=== PATIENT | male | born 1985 | race Caucasian/White ===

== ENCOUNTER 2018-11-10 21:17 | Inpatient (IN) ==
[2018-11-10] MEDS ORDERED: DUONEB (A & A) INH ONE (22:55)
[2018-11-10] MEDS ORDERED: TORADOL IM ONE (22:55)
[2018-11-10 23:10] LABS: BASO# 0.02 X1000 (0.0-0.2); BASO% 0.1 % (0.0-0.8); EOS# 0.09 X1000 (0.0-0.7); EOS% 0.6 % (0.0-10.0); HEMATOCRIT 43.6 % (42.0-52.0); HEMOGLOBIN 14.7 g/dL (14.0-18.0); IMM GRAN# 0.02 X1000 (0.0-0.04); IMM GRAN% 0.1 % (0.0-0.5); LYMPH# 1.44 X1000 (1.2-3.4); LYMPH% 10.2 % (20.5-51.1); MCH 28.1 PG (27-31); MCHC 33.7 g/dL (33-37); MCV 83.2 FL (81-99); MONO# 0.83 X1000 (0.11-0.59); MONO% 5.9 % (1.7-9.3); MPV 8.6 FL (7.4-10.4); NEUT# 11.65 X1000 (1.4-6.5); NEUT% 83.1 % (42.2-75.2); PLT 349 X1000 (130-400); RBC 5.24 XMIL (4.7-6.1); RDW 13.1 % (11.5-14.5); WBC 14.05 X1000 (4.8-10.8)
[2018-11-10 23:34] LABS: AGAP 12; ALB/GLOB RATIO 1.1; ALBUMIN 4.4 g/dL (3.5-5.0); ALKALINE PHOSPHATASE 83 U/L (32-122); AMYLASE 32 U/L (20-200); BUN 12 mg/dL (8-22); CALCIUM 9.1 mg/dL (8.8-10.2); CHLORIDE 100 mmol/L (98-107); CK TOTAL 105 U/L (24-204); COSMO 276; CREATININE 1.1 mg/dL (0.7-1.2); ESTIMATED GFR > 60; GLUCOSE 106 mg/dL (70-104); GOT 11 U/L (10-34); GPT 19 U/L (10-44); LIPASE 31 U/L (13-60); POTASSIUM 3.6 mmol/L (3.5-5.1); SODIUM 138 mmol/L (136-145); TCO2 26 mmol/L (25-35); TOTAL BILIRUBIN 0.52 mg/dL (0.20-1.00); TOTAL PROTEIN 8.5 g/dL (6.3-8.3)
[2018-11-11 01:56] LABS: URINE SOURCE CLEAN CATCH
[2018-11-11 01:59] LABS: BILIRUBIN URINE NEGATIVE (NEGATIVE); BLOOD URINE LARGE (NEGATIVE); COLOR ORANGE; GLUCOSE URINE NEGATIVE (NEGATIVE); KETONE URINE NEGATIVE (NEGATIVE); LEUKOCYTES URINE TRACE (NEGATIVE); NITRITE URINE NEGATIVE (NEGATIVE); PROTEIN URINE 50 mg/dL (NEGATIVE); TURBIDITY URINE CLEAR (CLEAR); UROBILINOGEN URINE NORMAL (NORMAL)
[2018-11-11 02:16] LABS: UR AMPHETAMINES QUAL NONE DETECTED (NONE DETECT); UR BARBITUATES QUAL NONE DETECTED (NONE DETECT); UR BENZODIAZEPIN QUAL NONE DETECTED (NONE DETECT); UR OPIATES QUAL NONE DETECTED (NONE DETECT)
[2018-11-11 02:17] LABS: UR CANNABINOIDS QUAL NONE DETECTED (NONE DETECT); UR COCAINE QUAL NONE DETECTED (NONE DETECT); UR METHADONE QUAL NONE DETECTED (NONE DETECT); UR OXYCODONE QUAL NONE DETECTED (NONE DETECT); UR PCP QUAL NONE DETECTED (NONE DETECT)
[2018-11-11] MEDS: ROCEPHIN 1 GM in NS 50 ML IV SCH (02:20)
[2018-11-11 02:32] LABS: UR EPITHELIAL CELLS <10 /HPF (<10); URINE BACTERIA NEGATIVE /HPF; URINE RBC TNTC /HPF (<10); URINE WBC TNTC /HPF (<10)
[2018-11-11 02:49] LABS: SP GRAVITY URINE 1.015
--- NOTE | 2018-11-11 02:59 | PROVIDER DOCUMENTATION ---
This chart was entered by Renee Webster Scribe, acting as scribe for Esperanza Hill MD. HPI-Chest Pain - General Chief Complaint: General Adult Stated Complaint: PAIN IN CHEST, SIDE AND BACK WITH BREATHING Time Seen by Provider: 11/10/18 21:40 Allergies/Adverse Reactions: Patient Allergies Allergy/AdvReac Type Severity Reaction Status Date / Time aspirin AdvReac RASH Verified 11/11/18 00:22 Home Medications: Home Medication List Medication Instructions Recorded Confirmed Last Taken Type Cyclobenzaprine [Flexeril] 10 mg PO TID PRN PRN #14 tab 11/05/18 11/11/18 Unknown Rx Tramadol [Ultram] 50 mg PO Q6H PRN PRN #10 tab 11/05/18 11/11/18 Unknown Rx - History of Present Illness-CP Nature of Presenting Problem: 33 yowm c/o cp, substernal/epigastric and radiating to bilateral sides and back. pt went to [facility] two wks ago for shoulder blade inj, administered shot. pt sts when breathing and cough cp is worse. 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 denies nvd, fever, chills. pt was seen in [facility] er on 11-05 to follow up from work related injury to shoulder. Location: reports: substernal, epigastric Chest Pain Radiation: reports: no radiation Severity in ED: mild Onset/Duration: 5 days ago Timing: still present Context/Activities at Onset: reports: none Modifying Factors: improves with: breathing (worse), coughing (worse) Associated Symptoms: reports: back pain Nitro Today/Relief: no nitro taken today Aspirin Treatment Today: no aspirin today Review of Systems - Adult - REVIEW OF SYSTEMS - ADULT Constitutional: reports: no symptoms reported. denies: chills, fever, fatique, night sweats Eyes: reports: no symptoms reported Ears, Nose, Mouth & Throat: reports: no symptoms reported Cardiovascular: reports: see HPI, chest pain (substernal/epigastric). denies: orthopnea, palpitations, syncope Respiratory: reports: cough, pleurisy. denies: hemoptysis, shortness of breath, wheezing Gastrointestinal: reports: no symptoms reported Genitourinary: reports: see HPI, flank pain (bilat) Musculoskeletal: reports: see HPI, back pain. denies: muscle aches, muscle weakness, neck pain Integumentary: reports: no symptoms reported Neurological: reports: no symptoms reported Psychiatric: reports: no symptoms reported Endocrine: reports: no symptoms reported Hematologic/Lymphatic: reports: no symptoms reported Allergic/Immunologic: reports: no symptoms reported All Other Systems: Reviewed and Negative Past History - Adult - PAST MEDICAL HISTORY-ADULT Review of Records: reports: Old Records Reviewed, Nursing Assessment Review, Medications Reviewed, Social history reviewed & non-contributory. Major Childhood Illnesses: reports: denies history Cardiovascular: reports: denies history Respiratory: reports: asthma Gastrointestinal: reports: denies history Obstetrical/Gynecological: reports: denies history Genitourinary: reports: denies history Musculoskeletal: reports: denies history Neurological: reports: denies history Endocrine/Immune: reports: denies history Other Conditions: reports: denies history - PRIOR SURGERIES/PROCEDURES Surgical/Procedure History: reports: none - IMMUNIZATION STATUS Childhood Immunizations: See Nurse Assessment Flu Vaccine: See Nurse Assessment - FAMILY HISTORY Family History: reviewed, not pertinent - SOCIAL HISTORY Smoking: non-smoker Substance Use: alcohol Physical Exam-General - PHYSICAL EXAM-ADULT Initial Vital Signs Reviewed: Yes - CONSTITUTIONAL General Appearance: appears well, alert, moderate distress, obese. negative: lethargic, slow to respond, obtunded - EYES Eyes: PERRL/EOMI, pink conjunctivae - HEAD, EARS, NOSE, MOUTH & THROAT HENMT: normocephalic/atraumatic, moist mucous membranes, normal ENT inspection - NECK Neck: non-tender, full range of motion, supple, normal inspection - RESPIRATORY Respiratory: chest non-tender, lungs clear, no pleuratic chest pain, no respiratory distress, no accessory muscle use, decreased breath sounds (rt si ded), wheezing (scant). negative: normal breath sounds, respiratory distress, accessory muscle use, crackles - CARDIOVASCULAR Cardiovascular: normal peripheral pulses, regular rate, rhythm, no edema, no murmur. negative: JVD, bradycardia, tachycardia - CHEST (BREASTS) Chest/Breast: no masses/lumps, tenderness (cp reproducable to palp). negative: no tenderness, nipple discharge, mass/lump noted - GASTROINTESTINAL (ABDOMEN) Abdominal Exam: normal bowel sounds, soft, no organomegaly, no pulsatile mass, tenderness (mild epigsatric to palp). negative: non tender, abnormal bowel sounds, distended, guarding - LYMPHATIC Lymphatic: no adenopathy - MUSCULOSKELETAL Back Exam: normal inspection, no CVA tenderness, no vertebral tenderness. negative: CVA tenderness, decreased range of motion, vertebral tenderness Extremity: normal range of motion, non-tender, normal gait, normal inspection Peripheral Pulses: radial (R): 2+, radial (L): 2+ - SKIN Integumentary: normal color, normal turgor, warm/dry - NEUROLOGIC Neurologic: grossly normal, no motor/sensory deficits - PSYCHIATRIC Psych/Mental Status: normal mood/affect, normal thought content, normal thought process, oriented x 3 - HEART Score HEART Score: History: Slightly Suspicious HEART Score: ECG: Normal HEART Score: Age: < or = 45 Years HEART Score: Risk Factors for Atherosclerotic Disease: 1 or 2 Risk Factors HEART Score: Troponin: < or = Normal Limit Total HEART Score:: 1 Progress - PLAN OF CARE/RESULTS Progress/Plan/Lab Results: Vital Signs - 8 hr 11/10/18 22:06 11/10/18 23:15 Temperature 98.3 F Pulse Rate 106 H 85 Respiratory Rate 20 15 Blood Pressure 133/87 O2 Sat by Pulse Oximetry 98 Laboratory Results - last 24 hr 11/10/18 11/10/18 11/10/18 22:50 22:50 22:50 WBC 14.05 H RBC 5.24 Hgb 14.7 Hct 43.6 MCV 83.2 MCH 28.1 MCHC 33.7 RDW Std Deviation 13.1 Plt Count 349 MPV 8.6 Immature Gran % (Auto) 0.1 Neut % (Auto) 83.1 H Lymph % (Auto) 10.2 L Warren % (Auto) 5.9 Eos % (Auto) 0.6 Baso % (Auto) 0.1 Immature Gran # (Auto) 0.02 Neut # (Auto) 11.65 H Lymph # (Auto) 1.44 Warren # (Auto) 0.83 H Eos # (Auto) 0.09 Baso # (Auto) 0.02 Sodium 138 Potassium 3.6 Chloride 100 Carbon Dioxide 26 Anion Gap 12 BUN 12 Creatinine 1.1 Estimated GFR/1.73 m2 > 60 BUN/Creatinine Ratio 11 Glucose 106 H Calculated Osmolality 276 Calcium 9.1 Total Bilirubin 0.52 AST 11 ALT 19 Alkaline Phosphatase 83 Creatine Kinase 105 Troponin T < 0.010 Total Protein 8.5 H Albumin 4.4 Globulin 4.1 Albumin/Globulin Ratio 1.1 Amylase 32 Lipase 31 Urine Source Urine Color Urine Turbidity Urine pH Ur Specific [place] Urine Protein Ur Glucose (Stick) Ur Ketones (Stick) Urine Blood Urine Nitrite Urine Bilirubin Urobilinogen Dipstick Urine Leukocytes Urine WBC (Auto) Urine RBC (Auto) U Epithel Cells (Auto) Urine Bacteria (Auto) Urine Crystals Small Round Cells Urine Casts Urine Yeast-like Cells Urine Opiates Screen Ur Oxycodone Screen Ur Methadone, Qual Ur Barbiturates Screen Ur Phencyclidine Scrn Ur Amphetamines Screen U Benzodiazepines Scrn Urine Cocaine Screen U Cannabinoids Screen 11/11/18 11/11/18 01:52 01:52 WBC RBC Hgb Hct MCV MCH MCHC RDW Std Deviation Plt Count MPV Immature Gran % (Auto) Neut % (Auto) Lymph % (Auto) Warren % (Auto) Eos % (Auto) Baso % (Auto) Immature Gran # (Auto) Neut # (Auto) Lymph # (Auto) Warren # (Auto) Eos # (Auto) Baso # (Auto) Sodium Potassium Chloride Carbon Dioxide Anion Gap BUN Creatinine Estimated GFR/1.73 m2 BUN/Creatinine Ratio Glucose Calculated Osmolality Calcium Total Bilirubin AST ALT Alkaline Phosphatase Creatine Kinase Troponin T Total Protein Albumin Globulin Albumin/Globulin Ratio Amylase Lipase Urine Source CLEAN CATCH Urine Color ORANGE Urine Turbidity CLEAR Urine pH 6.0 Ur Specific [place] 1.015 Urine Protein 50 A Ur Glucose (Stick) NEGATIVE Ur Ketones (Stick) NEGATIVE Urine Blood LARGE A Urine Nitrite NEGATIVE Urine Bilirubin NEGATIVE Urobilinogen Dipstick NORMAL Urine Leukocytes TRACE A Urine WBC (Auto) TNTC A Urine RBC (Auto) TNTC A U Epithel Cells (Auto) <10 Urine Bacteria (Auto) NEGATIVE Urine Crystals CA OXALATE PRESENT Small Round Cells NONE SEEN Urine Casts NONE SEEN Urine Yeast-like Cells NONE SEEN Urine Opiates Screen NONE DETECTED Ur Oxycodone Screen NONE DETECTED Ur Methadone, Qual NONE DETECTED Ur Barbiturates Screen NONE DETECTED Ur Phencyclidine Scrn NONE DETECTED Ur Amphetamines Screen NONE DETECTED U Benzodiazepines Scrn NONE DETECTED Urine Cocaine Screen NONE DETECTED U Cannabinoids Screen NONE DETECTED Orders Category Date Time Status CHEST-2 VIEWS [RAD] Stat Exams 11/10/18 22:[address] ANGIOGRM PULMONARY ARTERIES [CT] Stat Exams 11/11/18 00:06 Taken AMYLASE [CHEM] Stat Lab 11/10/18 22:50 Completed CBC WITH ELECTRONIC DIFF [HEME] Stat Lab 11/10/18 22:50 Completed CK TOTAL [CHEM] Stat Lab 11/10/18 22:50 Completed COMPREHENSIVE METABOLIC PANEL [CHEM] Stat Lab 11/10/18 22:50 Completed LIPASE [CHEM] Stat Lab 11/10/18 22:50 Completed TROPONIN T Stat Lab 11/10/18 22:50 Completed URINALYSIS W/POSS RFLX CULT [URINALYSIS] Stat Lab 11/11/18 01:52 Completed URINE CULTURE [RM] Routine Lab 11/11/18 02:49 Received URINE DRUG SCREEN Stat Lab 11/11/18 01:52 Completed URINE MANUAL MICROSCOPIC [URINALYSIS] Stat Lab 11/11/18 01:52 Completed Albuterol 2.5MG/Ipratrop 0.5MG [Duoneb (A & A)] Med 11/10/18 22:55 Discontinued 3 ml INH NOW ONE CefTRIAXONE [Rocephin] 1 gm Med 11/11/18 02:15 Active 0.9% Sodium Chloride Inj [Ns] 50 ml IV Q24H Cyclobenzaprine [Flexeril] Med 11/11/18 06:02 Ordered 10 mg PO TID PRN PRN Ketorolac [Toradol] Med 11/10/18 22:55 Discontinued 60 mg IM NOW ONE Tramadol [Ultram] Med 11/11/18 06:02 Ordered 50 mg PO Q6H PRN PRN Aerosol Treatments Routine Oth 11/10/18 22:55 Completed Aerosol Treatments Stat Oth 11/10/18 22:55 Completed Patient has been seen in [facility] on and CXR showing no specific granulamatous changes and possible clavicular fx. Went to PCP and PCP told him no clavicular fracture and gave him injection in his shoulder and sent him back to [facility] for chest pain rule out. He was told at [facility] it was not his heart and discharged with pain medications. Patient also presented with abd pain here in may and no CT was done at that time. CT chest ordered today and showing concerns for metatstatic disease and less likely inflammatory disease in lungs and T5 vetebrae. Concern for malignancy. Spoke to patient about findings and the need to be admitted. He agreed. He also has a UTI and is being treated for that. Offered further pain medications after toradol but he states he is fine and is just more interested in finding out what is going on. Spoke to Dr Llanos, front desk manager for hospitalist who accepted patient for admission. Further orders to be placed by their team. Result Diagrams: 11/10/18 22:50 11/10/18 22:50 - XRAY 1 XRAY Study: Chest Impression: Abnormal XRAY Interpretation: patchy appearance - CT/MRI 1 CT Study: Thorax (Poor evaluation for acute PE due to poor bolus, multiple varibly sized lung nodules. Considerations include metastatic disease and less likely TB or atypical infections, Destructive lesion in the inferior T5, considerations include metastatic disease and less likely inflammatory. Recommend MRI spine with and without contrast.) - CONSULTS/PCP/HOSPITALIST Notification #1 *Consult/PCP/Hospitalist*: Dr Llanos Time Discussed: 02:54 Consult Disposition: Admit Departure - Departure Date of Disposition Decision: 11/11/18 Time of Disposition Decision: 02:54 DIAGNOSIS: Chest pain, Lesion of vertebra of thoracic spine present on computed tomography, Lung nodules, UTI (urinary tract infection) Disposition: ADMITTED INPATIENT 09 Certified Medical Emergency: Emergent Condition: Stable Referrals and Follow-Ups: None,PCP [Primary Care Provider] - - Critical Care Note This patient required my direct & personal management of CC.: No Attestation - Physician/ MISAEL Attestation Patient care was provided by Advanced Practice Provider:: No The physician spent face to face time with patient:: Yes Advanced Practice Provider documentation review:: Supervising physician onsite and consulted in the evaluation and care of this patient. The physician did have a face to face encounter with the patient. This chart was documented by the indicated scribe, (Renee Webster Scribe) and accurately reflects the services I performed and decisions made by me, Esperanza Hill MD, as attested by the provider's signature.
[2018-11-11 03:02] LABS: URINE CASTS NONE SEEN; URINE CRYSTALS CA OXALATE PRESENT; URINE SMALL ROUND CELLS NONE SEEN; URINE YEAST NONE SEEN
[2018-11-11] MEDS ORDERED: TUBERSOL ID ONE (06:05)
[2018-11-11] MEDS ORDERED: LEVAQUIN 750 MG/D5W 750 MG/150 ML IVPB IV SCH (06:15)
[2018-11-11] MEDS: DUONEB (A & A) INH SCH ×4 (07:22→22:50)
[2018-11-11] MEDS ORDERED: ZOFRAN IV PRN (07:49)
[2018-11-11] MEDS ORDERED: TYLENOL PO PRN (07:49)
--- NOTE | 2018-11-11 08:36 | Diag Imaging Result Doc PS360 ---
EXAM: CHEST-2 VIEWS INDICATION: decreased breath on right, SOB TECHNIQUE: 2 views COMPARISON: 11/05/2018 FINDINGS: Inspiration is suboptimal. There is mild linear opacity at the lung bases suggesting mild atelectasis. Vague nodular densities in the upper lung zones bilaterally are approximately stable. There is no discrete pleural fluid collection or pneumothorax. The cardiomediastinal silhouette and central vasculature are grossly unremarkable. IMPRESSION: Suggestion of mild bibasilar atelectasis. Nonspecific nodular densities are grossly unchanged. Electronically signed by Nixon Webster 11/11/2018 8:34 AM
--- NOTE | 2018-11-11 09:12 | HISTORY AND PHYSICAL ---
CHIEF COMPLAINT: Chest pain, shoulder pain. HISTORY OF PRESENT ILLNESS: This is a 33-year-old male who had a work injury this last week, hurt his left shoulder. He was given a shot in it. The patient states when breathing and coughing, chest pain is worse. He was having chest pain that radiated to bilateral sides and back. Denies any type of fever or chills. Also was having some substernal/epigastric pain. Denies any nausea or vomiting. Breathing makes it worse as well as coughing. Rest makes it better. He feels it is more with respiration as opposed to actual chest pain. He has been trying to breathe shallow. A CT angiogram was done in the emergency room which showed multiple lung nodules. Considerations include metastatic disease, TB and atypical infection; however, those are less likely. There is apparently a destructive lesion in the inferior T5. Recommends an MRI when possible. He will be admitted for further evaluation and treatment. PAST MEDICAL HISTORY: Asthma. PAST SURGICAL HISTORY: Denies. FAMILY HISTORY: Diabetes and nonspecific cancer. SOCIAL HISTORY: Works at [employer]. He has not worked in 3 weeks. He dips chewing tobacco. Uses alcohol occasionally. No illicit drugs. ALLERGIES: Aspirin. HOME MEDICATIONS: Ultram and Flexeril which were given for the shoulder pain. REVIEW OF SYSTEMS: A 14-point review of systems was conducted with the patient, and pertinent positives are listed in the above HPI. All other systems are reviewed and found to be negative. PHYSICAL EXAMINATION: VITAL SIGNS: Temperature is 98.3, pulse 76, respirations 18, blood pressure 149/77, oxygen saturation 97% on room air. GENERAL: This is a pleasant 33-year-old male. He is obese, lying on the ER stretcher, answers all questions appropriately. Alert and oriented x3. HEENT: Head is atraumatic and normocephalic. Pupils are equal, round and reactive to light. Extraocular eye movements intact. Sclerae nonicteric. Conjunctivae are pink. Oral mucosa is pink. NECK: Supple. No JVD. No thyromegaly. Trachea is midline. No cervical lymphadenopathy. CARDIAC: S1 and S2 appreciated. No murmurs, gallops or rubs. LUNGS: Decreased bilaterally. No rhonchi, wheeze or rales. Symmetrical rise and fall with respirations. ABDOMEN: Soft, nondistended and nontender. It is protuberant. Bowel sounds present in all 4 quadrants, normoactive. No pulsatile masses. No organomegaly. EXTREMITIES: No cyanosis, clubbing or edema. There are 2+ pedal pulses bilaterally. GENITOURINARY: No bladder distention. The patient voids. Otherwise normal. NEUROLOGICAL: Alert and oriented x3. Cranial nerves II through XII grossly intact. DIAGNOSTIC DATA: Pulmonary arteriogram showed multiple lung nodules and also showed a destructive lesion in the inferior T5. Laboratory data showed WBC of 14.05, otherwise CBC within normal limits. Chemistry within normal limits other than glucose of 106. Urine with too numerous to count WBCs, leukocyte esterase positive. Large amounts of hematuria with too numerous to count RBCs noted. ASSESSMENT AND PLAN: 1. Pulmonary nodules of unknown etiology. We will consult Dr. Oakes. We will place the patient on treatment for an atypical pneumonia since he works at [employer] around [employer]. We will place him on doxycycline and Rocephin. We will order blood cultures. As noted, we will consult Dr. Oakes to evaluate pulmonary nodules. 2. Destructive lesion at the area of T5. Recommend MRI on Monday. There is no MRI over the weekend. 3. Leukocytosis. This could be reactive; however, it could be related to atypical infection. 4. Asthma. We will place on DuoNebs q.6 hours. Further recommendations based on the patient's clinical course. Dictated by JAMIL Alcaraz for Radames Llanos MD have performed a face to face diagnostic evaluation. Labs/ Xrays- reviewed. Exam- chest - clear, CV- regular. A/P Pulmonary nodules- Admit, Pulmonary consult, Empiric ABX for possible pneumonia. Dr. Salgeuro cc: JAMIL Alcaraz MD [facility]
--- NOTE | 2018-11-11 09:50 | Diag Imaging Result Doc PS360 ---
EXAM: CT ANGIOGRM PULMONARY ARTERIES INDICATION: chest pain, dyspnea TECHNIQUE: This exam was performed using automated exposure control, adjustment of mA or kV according to patient size, and/or use of iterative reconstruction technique. Thin section axial images and 3-D MIPS were obtained. COMPARISON: None. FINDINGS: There is no evidence of pulmonary embolism. There is no evidence of aortic dissection or aneurysm. There are a few mildly prominent mediastinal and hilar lymph nodes that are nonspecific. There is no cardiomegaly. There are a few small calcified granulomata scattered throughout both lungs. There are a few fairly prominent lobulated noncalcified nodules in the left upper lobe and at least one in the right upper lobe. The largest nodule is in the left upper lobe measuring up to 2.0 x 1.7 cm axially. There is subsegmental atelectasis at both lung bases. There is trace pleural fluid at the left lung base. There is no pneumothorax. Limited views of the upper abdomen reveals a mildly prominent spleen measuring up to 14.7 cm axially. At the inferior endplate of T5, there is a small lytic lesion anteriorly on the left. There is also suggestion of soft tissue infiltration adjacent to this vertebral body. There is multilevel spondylosis. The bony structures are grossly unremarkable, otherwise. IMPRESSION: 1.Several lobulated noncalcified prominent nodules in the upper lobes bilaterally. They are nonspecific. Consider metastatic disease from an unknown primary or atypical infectious etiologies. 2.Small lytic lesion at the inferior endplate of T5 with suggestion of paraspinal soft tissue infiltrate. Metastatic disease cannot be excluded. Correlation with thoracic spine MRI with and without contrast is suggested. 3.Subsegmental atelectasis at the lung bases and trace left pleural effusion. 4.No evidence of pulmonary embolism. Electronically signed by Nixon Webster 11/11/2018 9:48 AM
[2018-11-11] MEDS: DOXYCYCLINE 100 MG in NS 250 ML IV SCH ×2 (10:36→23:03)
--- NOTE | 2018-11-11 10:53 | PROGRESS NOTE ---
DATE: 11/11/2018 SUBJECTIVE: Patient is resting comfortably in bed. He had chest pain. He has been complaining of chest pain, mostly associated with respiration/deep breath, pulmonary department has been consulted. We will wait for recommendations, CT scan showed pulmonary nodules. OBJECTIVE: Vital Signs: Temperature 98.1 degrees, pulse 94, respiratory rate 16, blood pressure 136/73, oxygen saturation 100% on room air. HEENT: Head normocephalic, no trauma. PERRLA. Neck: Supple. No JVD. No masses. Central trachea. Chest: Clear to auscultation. Some crepitus at the bases, decreased bilaterally. Abdomen: Soft, nontender, nondistended. Protuberant. Extremities: No edema, no clubbing, no cyanosis. Neurological: Alert and oriented x3. No focal deficits. LABORATORY: From 11/10/2018: WBC 14, hemoglobin 14.7, hematocrit 43.6, platelet count 349,000. Sodium 138, potassium 3.6, chloride 100, bicarbonate 26, BUN 12, creatinine 1.1, glucose 106, calcium 9.1, AST 11, ALT 19, alkaline phosphatase 183, albumin 4.4. ASSESSMENT AND PLAN: 1. Pulmonary nodules of unknown etiology, pulmonary department has been consulted pending recommendations. Probably this patient has atypical pneumonia. Continue with antibiotics, negative blood cultures so far. 2. Destructive lesion at the area of T5, recommended MRI. 3. Leukocytosis, probably reactive and/or related to the infection. We will repeat the complete blood count in the morning. 4. Asthma, not in exacerbation. 5. Obesity with a body mass index of 39.2. Diet and exercise has been has been discussed. cc: Braydon Skaggs MD
[2018-11-11] MEDS: ULTRAM PO PRN ×2 (12:16→18:58)
[2018-11-11 13:52] LABS: INR 1.11; PROTIME 14.5 Seconds (11.0-16.0)
--- NOTE | 2018-11-11 14:06 | CONSULTATION ---
DATE OF CONSULTATION: 11/11/2018 CHIEF COMPLAINT: Chest pain, left shoulder pain. HISTORY OF PRESENT ILLNESS: This is a 33-year-old male who had a recent work-related injury approximately one week ago in his left shoulder. He was treated. The patient was complaining of chest pain that radiated to bilateral sides and back. Denies fever, chills, or cough. He also has a complaint of substernal and epigastric pain. Denies nausea or vomiting. Shallow breathing. Recent CT angiogram was done in the emergency room that revealed several lobulated, noncalcified pulmonary nodules in the upper lobes bilaterally. They are nonspecific. He also to had a small lytic lesion at the inferior endplate of T5 with suggestion of paraspinal soft tissue infiltrate. Metastatic disease cannot be excluded. Also some atelectasis at lung bases and trace left pleural effusion. No evidence of pulmonary embolism. PAST MEDICAL HISTORY: Asthma. PAST SURGICAL HISTORY: None. FAMILY HISTORY: Diabetes. SOCIAL HISTORY: Alcohol occasionally. No illicit drug use. Dips tobacco. Works at [employer], been off work for 3 weeks. HOME MEDICATIONS: Ultram and Flexeril. REVIEW OF SYSTEMS: A 10-point review of systems was conducted and the pertinent is listed within the HPI, otherwise noncontributory. PHYSICAL EXAMINATION: Vital Signs: Blood pressure 136/73, temperature 98.1, pulse 94, respirations 16, O2 saturation 100% room air. General: This is a 33-year-old, male resting in bed with a complaint of back pain and tenderness. HEENT: Head is atraumatic, normocephalic. Pupils are equal, round, reactive to light. Neck: Supple. Trachea is midline. Respiratory: Decreased bilaterally. Nonlabored. Cardiac: S1 and S2 auscultated. No murmurs, gallops, or rubs. Abdomen: Soft, nondistended, nontender. Bowel sounds present in all 4 quadrants. Extremities: No cyanosis, clubbing, or edema. +2 pedal pulses bilaterally. Neurological: Alert and oriented x3. Cranial nerves II through XII grossly intact. DIAGNOSTIC DATA: As mentioned in the HPI. LABORATORY DATA: White blood cells 14.05, red blood cells 5.24, hemoglobin 14.7, hematocrit 43.6. Sodium 138, potassium 3.6, chloride 100, carbon dioxide 26, glucose 106, AST 11, ALT 19, total protein 8.5. ASSESSMENT AND PLAN: 1. Pulmonary nodules bilaterally in the upper lung lobes, noncalcified. Will schedule CT-guided biopsy. Will obtain PT and PTT prior to surgery. 2. Asthma. Continue bronchodilators as prescribed. 3. Leukocytosis. Continue intravenous antibiotics, Rocephin and doxycycline. Thank you for the courtesy of this consult. Dictated by JAMIL Barboza for Bethany Cade MD cc: JAMIL Barboza MD
[2018-11-11] MEDS: FLEXERIL PO PRN (18:59)
[2018-11-12] MEDS: ROCEPHIN 1 GM in NS 50 ML IV SCH ×2 (01:09→06:55)
[2018-11-12] MEDS ORDERED: ROCEPHIN 1 GM in NS 50 ML IV SCH (02:00)
[2018-11-12] MEDS: DUONEB (A & A) INH SCH ×4 (03:32→22:40)
[2018-11-12 06:17] LABS: BASO# 0.01 X1000 (0.0-0.2); BASO% 0.1 % (0.0-0.8); EOS# 0.12 X1000 (0.0-0.7); EOS% 1.4 % (0.0-10.0); HEMOGLOBIN 12.6 g/dL (14.0-18.0); LYMPH# 1.35 X1000 (1.2-3.4); MCH 28.3 PG (27-31); MCHC 33.2 g/dL (33-37); MCV 85.2 FL (81-99); MONO# 0.59 X1000 (0.11-0.59); MPV 8.7 FL (7.4-10.4); NEUT# 6.39 X1000 (1.4-6.5); NEUT% 75.5 % (42.2-75.2); PLT 280 X1000 (130-400); RBC 4.46 XMIL (4.7-6.1); RDW 13.3 % (11.5-14.5); WBC 8.46 X1000 (4.8-10.8)
[2018-11-12 06:29] LABS: HEMOGLOBIN A1C 5.7 % (4.8-6.0)
[2018-11-12 06:42] LABS: AGAP 11; BUN 13 mg/dL (8-22); CALCIUM 8.6 mg/dL (8.8-10.2); CHLORIDE 105 mmol/L (98-107); COSMO 285; CREATININE 1.1 mg/dL (0.7-1.2); ESTIMATED GFR > 60; GLUCOSE 96 mg/dL (70-104); POTASSIUM 3.9 mmol/L (3.5-5.1); SODIUM 143 mmol/L (136-145); TCO2 27 mmol/L (25-35)
[2018-11-12] MEDS: DOXYCYCLINE 100 MG in NS 250 ML IV SCH ×2 (11:23→23:15)
--- NOTE | 2018-11-12 12:49 | PROGRESS NOTE ---
DATE: 11/12/2018 SUBJECTIVE: Patient is resting comfortably in bed. He is not complaining of chest pain or shortness of breath today. He has been scheduled to get a CT-guided biopsy, but will be tomorrow morning hopefully. OBJECTIVE: Vital Signs: Temperature 98.3 degrees, pulse 89, respiratory rate 20, blood pressure 140/72, oxygen saturation 98 on room air. HEENT: Head normocephalic. No trauma. PERRLA. Neck: Supple. No JVD. No masses. Central trachea. Chest: Clear to auscultation. No wheezing. No rales. Abdomen: Soft, nontender, nondistended. No hepatosplenomegaly. Extremities: No edema, no clubbing, no cyanosis. Neurological: The patient is alert and oriented x3. No focal deficits. LABORATORY DATA: WBC 8.4, hemoglobin 12.6, hematocrit 38, platelet 280,000. Sodium 143, potassium 3.9, chloride 105, bicarbonate 27, BUN 13, creatinine 1.1, glucose 96, calcium 8.6. Hemoglobin A1c 5.7. ASSESSMENT AND PLAN: 1. Pulmonary nodules of unknown etiology. He has been scheduled to get a CT-guided biopsy tomorrow, Pulmonary Department on board. 2. Possible atypical pneumonia. Continue with antibiotics. 3. Destructive lesion at the area of T5. Recommended MRI probably as an outpatient. 4. Leukocytosis, likely reactive and/or related to an infection. WBC today is normal. 5. Asthma, not in exacerbation. Continue with same management. 6. Obesity with a body mass index of 39.2. Diet and exercise have been discussed. cc: Braydon Skaggs MD
[2018-11-13] MEDS: ROCEPHIN 1 GM in NS 50 ML IV SCH (02:15)
[2018-11-13] MEDS: DUONEB (A & A) INH SCH ×4 (03:45→22:06)
[2018-11-13] MEDS: DOXYCYCLINE 100 MG in NS 250 ML IV SCH ×2 (10:19→23:20)
--- NOTE | 2018-11-13 12:31 | Diag Imaging Result Doc PS360 ---
CT ABD/PELVIS W/PO AND IV CON - 11/13/2018 INDICATION: R/O mass/tumor COMPARISON: Chest CT from 11/11/2018 FINDINGS: There is splenomegaly. There is a mild left lower lobe infiltrate and trace pleural effusion. The liver, gallbladder, spleen, pancreas, adrenals, and kidneys are normal. No bowel obstruction or inflammation. Urinary bladder, prostate, and rectum are normal. Bones are intact. Mild degeneration of the lumbar spine. IMPRESSION: 1. Left lower lobe pneumonia and trace pleural effusion. 2. Splenomegaly. This exam was performed using automated exposure control, adjustment of mA or kV according to patient size, and/or use of iterative reconstruction technique Electronically signed by Jasbir Trotter 11/13/2018 12:28 PM
--- NOTE | 2018-11-13 12:49 | Diag Imaging Result Doc PS360 ---
CT GUIDED BIOPSY LUNG - 11/13/2018 INDICATION: Lung Nodules TECHNIQUE: The risks and benefits of the procedure were discussed with the patient. This included the possibility of not being able to biopsy the very small nodules. On the limited CT scan, the nodules appeared stable from prior. The anterior left upper lobe was chosen. Overlying skin was prepped and draped in sterile fashion. The 19-gauge biopsy needle was advanced towards the nodule. However due to changes in patient positioning and breathing, the nodule changed position. The patient apparently experienced pain from apparently hitting a nerve. Therefore, the attempted biopsy was aborted. COMPARISON: None FINDINGS: Stable pulmonary nodules. IMPRESSION: Biopsy aborted. Small nodules could not be biopsied successfully due to their location. Electronically signed by Jasbir Trotter 11/13/2018 12:47 PM
--- NOTE | 2018-11-13 13:55 | PROGRESS NOTE ---
DATE: 11/13/2018 SUBJECTIVE: The patient resting comfortably in bed. He is getting a CT-guided biopsy today and an abdominal and pelvic CT scan. He has a positive urine culture that showed Staphylococcus aureus. He is getting treatment. He is on medications already with ceftriaxone and doxycycline, but I do not think this patient is symptomatic. OBJECTIVE: Vital Signs: Temperature 98.2 degrees, pulse 77, respiratory rate 14, blood pressure 146/65, oxygen saturation 99 on room air. HEENT: Head normocephalic, no trauma. PERRLA. Neck: Supple. No JVD. No masses. Central trachea. Chest: Clear to auscultation. No wheezing. No rales. Abdomen: Soft, nontender, nondistended. No hepatosplenomegaly. Extremities: No edema, no clubbing, no cyanosis. Neurological: The patient is alert and oriented x3. No focal deficits. LABORATORY: WBC 8.4, hemoglobin 12.6, hematocrit 38, platelets 280. Sodium 143, potassium 3.9, chloride 105, bicarbonate 27, BUN 13, creatinine 1.1, glucose 96, calcium 8.6. ASSESSMENT AND PLAN: 1. Pulmonary nodules of unknown etiology. Today this patient is scheduled to get a CT-guided biopsy, and also I asked for a CT scan of the abdomen and pelvis that basically showed splenomegaly and pneumonia. 2. Likely atypical pneumonia. Continue with antibiotics. 3. Destructive lesion at the level of the T5. 4. Leukocytosis is likely reactive. WBC is normal. 5. Asthma, history of. Not in exacerbation. 6. Obesity with a Body Mass Index of 39.2. Diet and exercise will be discussed. 7. Positive urine culture that showed urine Staphylococcus aureus. He is already on antibiotics, but I do not think this patient has symptoms. cc: Braydon Skaggs MD
--- NOTE | 2018-11-13 17:51 | GENERAL SURGERY CONSULTATION ---
DATE: 11/13/2018 HISTORY OF PRESENT ILLNESS: Mr. Amaro is a 33-year-old gentleman who works at [employer] who came in Monday, that is 3 days ago with pleuritic-type chest pain. Every time he took a deep breath it hurt across his chest. He denied any fever or significant coughing. He denies any smoking. He says he does not go to a doctor when he is ill. He does work at [employer]. PAST MEDICAL HISTORY: His past history is pertinent for asthma. PAST SURGICAL HISTORY: No previous surgery. FAMILY HISTORY: Pertinent for diabetes. SOCIAL HISTORY: He does dip tobacco. Uses alcohol regularly. Denies illicit drugs. He works at [employer]. ALLERGY: Aspirin. MEDICATIONS AT HOME: Ultram and Flexeril. REVIEW OF SYSTEMS: Otherwise negative in every subsystem. PHYSICAL EXAMINATION: Vital Signs: Temperature is 98.5 degrees, heart rate 85, respiratory rate 16, blood pressure 142/85. HEENT: He is bearded. He has no cervical adenopathy. No thyroid masses are palpated. Bilateral breath sounds are present. Heart: Regular rate and rhythm. Abdomen: Soft, nontender. No peripheral edema. Pedal pulses are present. He is awake and alert. DIAGNOSTICS/LABS: White count is 8400, hemoglobin 12.6, hematocrit 38. Chemistry is fine. CT scan shows multiple pulmonary nodules. An attempt to CT biopsy 1 was unsuccessful. The nodules appeared to be multiple in the upper lobes bilaterally. ASSESSMENT: Pulmonary nodules of uncertain character. PLAN: A thoracoscopy with biopsy. We will plan to proceed on the if possible. I discussed benefits and risks. I have discussed the possible need for doing a thoracotomy incision to get to 1 of the nodules. He understands and agrees to proceed. cc: Marcos Ballard MD
[2018-11-14] MEDS: ROCEPHIN 1 GM in NS 50 ML IV SCH ×2 (01:00→06:23)
[2018-11-14] MEDS: DUONEB (A & A) INH SCH ×4 (03:46→22:38)
[2018-11-14] MEDS: DOXYCYCLINE 100 MG in NS 250 ML IV SCH ×2 (11:45→23:08)
[2018-11-14] MEDS ORDERED: XYLOCAINE-MPF 2% ONE ×2 (14:46→18:09)
[2018-11-14] MEDS ORDERED: VERSED ONE (14:46)
[2018-11-14] MEDS ORDERED: FENTANYL ONE (14:46)
[2018-11-14] MEDS ORDERED: DIPRIVAN 1% ONE ×2 (14:47→16:26)
[2018-11-14] MEDS ORDERED: QUELICIN (DOSE) ONE ×2 (14:47→19:12)
[2018-11-14] MEDS ORDERED: SODIUM CHLORIDE 0.9% 10 ML ONE (14:47)
[2018-11-14] MEDS ORDERED: NORCURON ONE (14:47)
--- NOTE | 2018-11-14 14:55 | PROGRESS NOTE ---
DATE: 11/14/2018 SUBJECTIVE: The patient is scheduled today for a surgical biopsy. He has multiple wound a.m. pulmonary nodules. Continue with antibiotics and pulmonary department on board. OBJECTIVE: Vital Signs: Temperature 98 degrees, pulse 85, respiratory rate 16, blood pressure 133/79, oxygen saturation 98 on room air. HEENT: Head normocephalic, no trauma. PERRLA. Neck: Supple no JVD. No masses. Central trachea. Chest: Clear to auscultation. No wheezing. No rales. Abdomen: Soft, nontender, nondistended. No hepatosplenomegaly. Extremities: No edema, no clubbing, no cyanosis. Neurological: The patient is alert. He is oriented x3. No focal neurological deficits. LABORATORY: No lab work done today. ASSESSMENT AND PLAN: 1. Pulmonary nodule of unknown etiology. Today the patient is scheduled to get a biopsy done. Surgery department will go to the OR with the patient. We tried to do a CT-guided biopsy yesterday but it did not work. 2. Likely atypical pneumonia. Continue with antibiotics. 3. Destructive lesion at the level of the T5, unknown. 4. Leukocytosis, likely reactive. White blood cell count is normal. 5. Asthma, history of, not in exacerbation. 6. Obesity with a body mass index of 39.2. Diet and exercise has been discussed. 7. Positive urine culture that showed Staphylococcus aureus, but this patient is already on antibiotics and he is not having symptoms. 8. Overall, this patient seems to be stable. We will wait for the biopsy to be done today. I will follow recommendations of pulmonary department. cc: Braydon Skaggs MD
[2018-11-14] MEDS ORDERED: SENSORCAINE 0.25%/EPI 1:200,000 ONE (16:33)
[2018-11-14] MEDS ORDERED: LR 1,000 ML ONE (16:33)
[2018-11-14] MEDS ORDERED: NEOSTIGMINE ONE (17:18)
[2018-11-14] MEDS ORDERED: ROBINUL ONE (17:18)
[2018-11-14] MEDS ORDERED: EPHEDRINE ONE (18:06)
[2018-11-14] MEDS ORDERED: ZOFRAN ONE (18:09)
[2018-11-14] MEDS ORDERED: NARCAN ONE (18:51)
[2018-11-14] MEDS ORDERED: DILAUDID IV PRN (19:08)
--- NOTE | 2018-11-14 19:19 | Diag Imaging Result Doc PS360 ---
EXAM: CHEST-PORTABLE 11/14/2018 HISTORY: thoracoscopy TECHNIQUE: AP portable at 1906 COMMENT: There is a left chest tube. There is alveolar opacity in the left mid and lower lung field which was not the case on 11/10/2018. There is some platelike atelectasis in the right upper lobe. There is soft tissue emphysema in the left lower chest wall. IMPRESSION: Pulmonary opacities on the left which are probably a result of recent thoracoscopy. Minimal atelectasis right upper lobe. Electronically signed by Alexi Ascencio 11/14/2018 7:17 PM
[2018-11-14] MEDS ORDERED: TORADOL ONE ×2 (19:29)
[2018-11-14] MEDS: LR 1,000 ML IV SCH (21:00)
--- NOTE | 2018-11-15 02:23 | OPERATIVE NOTE ---
PROCEDURE DATE: 11/14/2018 PROCEDURE: Left thoracoscopy with biopsy. SURGEON: Marcos Ballard MD NEUROSCIENTIST: ARUN Gonsales PREOPERATIVE DIAGNOSIS: Multiple pulmonary nodules, left lung. POSTOPERATIVE DIAGNOSIS: Multiple pulmonary nodules, left lung. DESCRIPTION OF PROCEDURE: Satisfactory double-lumen general endotracheal anesthesia was achieved. We anesthetized the skin at each Thoracoport site. We first began just below the nipple. We anesthetized the skin, made an incision and entered the pleural space there and added a Thoracoport. We then added another Thoracoport laterally and inferiorly, and then another one toward the axilla. The lung was clamped. It decompressed over time. The left lower lung decompressed quicker than the upper lobe. We then inspected the surface of the upper lobe anteriorly, and at the edge we saw some small nodules that we attempted to remove with our Endo HAMZAH stapler purple cartridge. We did not get what we felt was an adequate sample, so we investigated further and found a larger nodule more posteriorly, which we were able to get to. Again using the endovascular staple purple cartridge 45 mm long, we did multiple allison until we removed an obvious large nodule. We then placed a 32 chest tube in the Thoracoport site that was near the anterior axillary line, and positioned it more laterally and posteriorly as much as possible. We then expanded the lung. I asked Anesthesia to unclamp it and expand it. Some bleeding had been noted, but not any significant amount of bleeding. The chest tube was secured with a 0 silk. It was attached to a Pleur-Evac. We closed the other Thoracoport sites with 3-0 Polysorb in the subcutaneous tissue and the skin was closed with a 4-0 Polysorb subcuticular stitch. Sterile OpSite dressings were applied. The specimen was cut in half, and half of it was sent in a sterile container to the lab for culture. This was AFB, fungus and routine culture. Then the other was sent to Pathology. He tolerated the procedure satisfactorily and was sent to the recovery room in satisfactory condition. cc: Marcos Ballard MD
[2018-11-15] MEDS: ROCEPHIN 1 GM in NS 50 ML IV SCH (02:52)
[2018-11-15] MEDS: ULTRAM PO PRN ×3 (03:02→16:16)
[2018-11-15] MEDS: DUONEB (A & A) INH SCH ×4 (04:07→21:55)
[2018-11-15 05:31] LABS: BASO# 0.01 X1000 (0.0-0.2); BASO% 0.1 % (0.0-0.8); EOS# 0.16 X1000 (0.0-0.7); EOS% 1.4 % (0.0-10.0); HEMATOCRIT 36.6 % (42.0-52.0); HEMOGLOBIN 12.2 g/dL (14.0-18.0); LYMPH# 1.04 X1000 (1.2-3.4); LYMPH% 9.2 % (20.5-51.1); MCH 28.5 PG (27-31); MCHC 33.3 g/dL (33-37); MCV 85.5 FL (81-99); MONO# 0.54 X1000 (0.11-0.59); MONO% 4.8 % (1.7-9.3); MPV 8.2 FL (7.4-10.4); NEUT# 9.57 X1000 (1.4-6.5); NEUT% 84.5 % (42.2-75.2); PLT 321 X1000 (130-400); RBC 4.28 XMIL (4.7-6.1); RDW 13.2 % (11.5-14.5); WBC 11.32 X1000 (4.8-10.8)
[2018-11-15 05:49] LABS: AGAP 9; BUN 10 mg/dL (8-22); CALCIUM 8.3 mg/dL (8.8-10.2); CHLORIDE 102 mmol/L (98-107); COSMO 276; CREATININE 0.8 mg/dL (0.7-1.2); ESTIMATED GFR > 60; GLUCOSE 117 mg/dL (70-104); POTASSIUM 4.2 mmol/L (3.5-5.1); SODIUM 138 mmol/L (136-145); TCO2 27 mmol/L (25-35)
[2018-11-15] MEDS: DOXYCYCLINE 100 MG in NS 250 ML IV SCH ×2 (10:40→23:12)
--- NOTE | 2018-11-15 13:30 | PROGRESS NOTE ---
DATE: 11/15/2018 SUBJECTIVE: This patient is status post left thoracostomy with biopsy, a thoracic tube has been placed. Surgery Department on board as well as Pulmonary Department. The reason why he had the procedure is because he has multiple pulmonary nodules. He is not complaining of shortness of breath. He is complaining of pain. He is completely awake, alert, and oriented x3. OBJECTIVE: Vital Signs: Temperature 98.3 degrees, pulse 90, respiratory rate 22, blood pressure 130/65, and oxygen saturation 96 on 3 L of nasal cannula. HEENT: Head normocephalic. No trauma. PERRLA. Neck: Supple. No JVD. No masses. Central trachea. Chest: Clear to auscultation. There is some crepitus on the left lower lobe. He has a chest tube on the left side with some serosanguineous discharge around it. Abdomen: Soft, nontender, and nondistended. No hepatosplenomegaly. Extremities: No edema. No clubbing. No cyanosis. Neurological: The patient is alert. He is oriented x3. No focal deficits. LABORATORY: WBC 11.3, hemoglobin 12.2, hematocrit 36.6, and platelets 321,000. Sodium 138, potassium 4.2, chloride 102, bicarbonate 27, BUN 10, creatinine 0.8 glucose 117, and calcium 8.3. ASSESSMENT AND PLAN: 1. Multiple pulmonary lung nodules of unknown etiology, status post left thoracoscopy and biopsy, postoperative day #1. This patient seems to be stable. Continue with the same management for now. Surgery Department on board as well as Pulmonary Department. 2. Likely, atypical pneumonia. Continue with antibiotics. 3. Destructive lesion at the level of T5 per CT scan. 4. Leukocytosis, stable. 5. Asthma, history of, not in exacerbation. 6. Obesity with a body mass index of 39.2. Diet and exercise have been discussed. 7. Positive urine culture that showed Staphylococcus aureus, but the patient is already on antibiotics and he is not symptomatic. cc: Braydon Skaggs MD
[2018-11-15] MEDS: FLEXERIL PO PRN (20:56)
[2018-11-15] MEDS: LR 1,000 ML IV SCH (23:12)
[2018-11-16] MEDS: ULTRAM PO PRN (00:43)
--- NOTE | 2018-11-16 01:43 | GENERAL SURGERY PROGRESS NOTE ---
DATE: 11/15/2018 SUBJECTIVE: Mr. Amaro is 1 day after left thoracoscopy and removal of one of the pulmonary nodules. Today he has good breath sounds. I did not see no air leak. He is drained 155 mL of serosanguineous fluid. PLAN: The plan will be to get a chest x-ray tomorrow removed, remove his chest tube tomorrow. [facility] will cover in my absence. The pathology remains pending. cc: Marcos Ballard MD
[2018-11-16] MEDS: ROCEPHIN 1 GM in NS 50 ML IV SCH (02:43)
[2018-11-16] MEDS: DUONEB (A & A) INH SCH ×2 (03:37→16:49)
[2018-11-16 06:09] LABS: BASO# 0.02 X1000 (0.0-0.2); BASO% 0.2 % (0.0-0.8); EOS# 0.47 X1000 (0.0-0.7); EOS% 5.5 % (0.0-10.0); HEMATOCRIT 37.8 % (42.0-52.0); HEMOGLOBIN 12.4 g/dL (14.0-18.0); LYMPH# 1.54 X1000 (1.2-3.4); LYMPH% 18.1 % (20.5-51.1); MCH 28.4 PG (27-31); MCHC 32.8 g/dL (33-37); MCV 86.5 FL (81-99); MONO# 0.66 X1000 (0.11-0.59); MONO% 7.7 % (1.7-9.3); MPV 8.2 FL (7.4-10.4); NEUT# 5.83 X1000 (1.4-6.5); NEUT% 68.5 % (42.2-75.2); PLT 309 X1000 (130-400); RBC 4.37 XMIL (4.7-6.1); RDW 13.4 % (11.5-14.5); WBC 8.52 X1000 (4.8-10.8)
[2018-11-16 06:44] LABS: AGAP 11; BUN 10 mg/dL (8-22); CALCIUM 8.8 mg/dL (8.8-10.2); CHLORIDE 101 mmol/L (98-107); COSMO 275; CREATININE 0.8 mg/dL (0.7-1.2); ESTIMATED GFR > 60; GLUCOSE 132 mg/dL (70-104); POTASSIUM 4.1 mmol/L (3.5-5.1); SODIUM 137 mmol/L (136-145); TCO2 25 mmol/L (25-35)
--- NOTE | 2018-11-16 07:30 | Diag Imaging Result Doc PS360 ---
EXAM: CHEST-PORTABLE INDICATION: post thoracoscopy TECHNIQUE: One view COMPARISON: 11/14/2018 FINDINGS: The left chest tube is in stable position. Airspace opacity at the mid and lower lung zone on the left are essentially stable. There are stable low lung volumes. Left upper lobe atelectasis is unchanged. No new consolidation is identified. Cardiac silhouette is stable. IMPRESSION: Stable chest. Electronically signed by Nixon Webster 11/16/2018 7:28 AM
[2018-11-16] MEDS: NORCO-10 PO PRN ×2 (08:42→15:51)
[2018-11-16] MEDS: FLEXERIL PO PRN (08:42)
[2018-11-16] MEDS: DOXYCYCLINE 100 MG in NS 250 ML IV SCH (10:35)
--- NOTE | 2018-11-16 11:49 | PROGRESS NOTE ---
DATE: 11/16/2018 SUBJECTIVE: This patient is status post left thoracoscopy with biopsy, postoperative day number 2. A thoracic tube has been placed. X-ray did not show any new abnormality, Surgery Department on board, probably the tube will be pulled out today, but I will wait for Surgery's recommendations. OBJECTIVE: Vital Signs: Temperature 99.1, pulse 98, respiratory rate 18, blood pressure 129/68, oxygen saturation 92 on room air. HEENT: Head normocephalic. No trauma. PERRLA. Neck: Supple. No JVD. No masses. Central trachea. Chest: Clear to auscultation. There is some crepitus on the left lower lobe. He has a chest tube on the left side with some serosanguineous discharge around it but mild. Abdomen: Soft, nontender, nondistended. No hepatosplenomegaly. Extremities: No edema, no clubbing, no cyanosis. Neurological: This patient is alert. He is oriented x3. No focal deficit. LABORATORY: WBC 8.5, hemoglobin 12.4, hematocrit 37.8, platelet 309. Sodium 137, potassium 4.1, chloride 101, bicarbonate 25, BUN 10, creatinine 0.8, glucose 132, calcium 8.8. ASSESSMENT AND PLAN: 1. Multiple pulmonary lung nodules of unknown etiology status post left thoracoscopy and biopsy postoperative day number 2. This patient seems to be stable. Probably the chest tube can pulled out today but Surgery Department will follow and monitor this patient closely. 2. Atypical pneumonia. Continue antibiotics. 3. Destructive lesion per CT scan at the level of the T5. Aware. 4. Leukocytosis, stable. 5. History of asthma, not in exacerbation. 6. Obesity with a body mass index of 39.2, diet and exercise has been discussed. 7. Positive urine culture that showed Staphylococcus aureus. This patient is already on antibiotics but he is not symptomatic. cc: Braydon Skaggs MD
[2018-11-16 12:20] LABS: BLASTOMYCES AB BY EIA SEE COMMENTS
[2018-11-16 16:55] VITALS: BP 123/70
--- NOTE | 2018-11-16 22:58 | PULMONOLOGY PROGRESS NOTE ---
DATE: 11/16/2018 SUBJECTIVE: The patient is awake, alert, and conversant. He is without specific complaints. He is anxious to go home. OBJECTIVE: Vital Signs: The patient has been afebrile for the last 24 hours. Blood pressure 129/66, heart rate 95, respiratory rate 16, oxygen saturation 93%. HEENT: Pupils are equal and reactive. Oropharynx appears clear. Neck: Supple. Chest: Reveals crackles at the left base. Chest tube is in position. No air leak noted. Cardiac exam: S1, S2. Abdomen: Soft without hepatosplenomegaly. Extremities: Without edema. LABORATORIES: Surgical pathology is reviewed. Left upper lobe wedge biopsy reveals granulomatous inflammation with central necrosis and fibrosis. Special stains are pending. QuantiFERON gold test was insufficient blood drawl and has been resent. Histoplasmosis yeast titer is 1 to 16. Immunodiffusion was negative. Mycelial form was negative. Blastomycosis was negative. Urine histoplasmosis antigen is negative. IMPRESSION: A 33-year-old with pleurisy and pulmonary nodules. Nodules reveal necrotizing granulomatous inflammation. No malignancy was identified. Special stains are pending. PLAN: 1. Continue current treatment regimen. 2. Continue isolation pending results of special stains and/or QuantiFERON test. cc: Viet Oakes MD
--- NOTE | 2018-11-18 07:16 | DISCHARGE SUMMARY ---
ADMISSION DATE: 11/10/2018 DISCHARGE DATE: 11/16/2018 DIAGNOSES: 1. Multiple pulmonary nodules revealing necrotizing granulomatous inflammation, no malignancy identified, status post thoracoscopy and biopsy on 11/08/2018. 2. Atypical pneumonia. 3. Destructive lesion per CT scan at the level of T5. 4. Leukocytosis, resolved. 5. History of asthma not in exacerbation. 6. Morbid obesity with a BSA of 39.2. 7. Positive urine culture revealing MSSA. CONSULTS: 1. Dr. Marcos Ballard of General Surgery. 2. Dr. Cade of Pulmonology. DIAGNOSTICS: 1. On 11/10/2018, chest x-ray revealed suggestion of mild bibasilar atelectasis. Nonspecific nodular densities are grossly unchanged. 2. On 11/11/2018, CTA pulmonary revealed several lobulated noncalcified prominent nodules in the upper lobes bilaterally that are nonspecific. Consider metastatic disease from an unknown primary or atypical infectious etiology. Small lytic lesion at the inferior endplate of T5 with suggestion of paraspinal soft tissue infiltrate. Metastatic disease cannot be excluded. Correlation with thoracic spine MRI with and without is suggested. Subsegmental atelectasis at the lung bases and trace left pleural effusion with no evidence of pulmonary embolism. 3. On 11/13/2018, CT of the abdomen and pelvis revealed left lower lobe pneumonia and trace pleural effusion with splenomegaly. 4. On 11/13/2018, CT-guided lung biopsy was attempted, although the patient changed position apparently secondary to pain from hitting a nerve, therefore the biopsy was aborted 5. On 11/14/2018, chest x-ray pulmonary opacities on the left, which are probably result of recent thoracoscopy, minimal atelectasis right upper lobe. 6. On 11/14/2018, OR left thoracoscopy with biopsy. MICROBIOLOGY: 1. Urine culture on 11/11/2018 revealed methicillin susceptible Staphylococcus aureus. 2. Blood cultures x2 revealed no growth after 5 days. 3. Left upper lobe specimen left upper lobe culture revealed many white blood cells, no bacteria, no epithelial cells. 4. Anaerobic culture left upper lobe revealed no anaerobes isolated on the final day. 5. Routine culture left upper lobe revealed no growth. HOSPITAL COURSE: Mr. Amaro presented to the emergency room complaining of chest pain that radiated to the bilateral sides and back, as well as shoulder pain that had started after a work injury the week prior. He denied any other accompanying symptoms. CT angiogram was performed which showed multiple lung nodules, as well as a small lytic lesion at the inferior endplate of T5 with suggestion of paraspinal soft tissue infiltrate with metastatic disease not being excluded. CT-guided biopsy was scheduled, this was unable to be performed due to the patient moving secondary to pain. Therefore, Dr. Marcos Ballard of General Surgery was consulted and the patient underwent left thoracoscopy with biopsy which he tolerated well. Chest tube was discontinued on 11/16/[address] Terry Morelos who then discharged the patient home. 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 Blood cultures revealed no growth as stated above. He remained afebrile throughout the hospitalization. His white count did peak at 11.3 on 11/15/2018, although on 11/16/2018 it was back down to 8.5. Diet and exercise were discussed with the patient due to his BMI. DISCHARGE VITAL SIGNS: Blood pressure is 123/70, with a heart rate of 100, respirations are 16, temperature is 98.6 degrees oral, O2 saturations ranging from 93% to 95% on room air. DISCHARGE PHYSICAL EXAMINATION: Cardiovascular: Regular rate and rhythm. S1 and S2 appreciated. Extremities: Calves are nontender bilateral with peripheral pulses palpable x4 extremities. Pulmonary: He did have some crackles at the left lung base. Chest rises and falls with symmetric respiration. Chest wall is nontender to palpation. Gastrointestinal: Soft, nontender and nondistended with bowel sounds in all 4 quadrants. Neurologic: Alert and oriented. DISCHARGE MEDICATIONS: 1. Ultram 50 mg p.o. q.6 hours. 2. Flexeril 10 mg p.o. t.i.d. 3. Doxycycline 100 mg p.o. b.i.d. for 5 days. FOLLOW-UP: 1. With Dr. Cade in 1 week. He needs to call Dr. Cade's office Monday to schedule this appointment. 2. With britney in 1 week. He needs to call Monday to schedule this appointment. DISCHARGE INSTRUCTIONS: He was instructed to call to be seen sooner or return to the emergency room for any syncope, dizziness chest pain, palpitations, temperature greater than 101.6, a productive cough or hemoptysis, any nausea, vomiting, diarrhea, constipation, black or bloody vomitus or stools, hematuria, dysuria, frequency, urgency, or for any questions or concerns that he may have. DISCHARGE CONDITION: He is being discharged home in stable condition with family members. TIME SPENT: This is a greater than 30 minute discharge. Dictated by JAMIL Gorman for Braydon Skaggs MD cc: JAMIL Gorman MD
== END 2018-11-16 21:05 | disposition home or self-care (01) | DRG 515 ==
LOC: ED 21:17 → SUATTDRO 21:18 → 4N 21:18
PROVIDERS: ATTEND Internal Medicine